=== PATIENT | female | born 1980 | race Caucasian/White ===

== ENCOUNTER 2018-07-05 16:57 | Emergency (ER) | payer OTHER ==
[2018-07-05 18:05] VITALS: BP 89/52
--- NOTE | 2018-07-05 19:05 | UC ---
Abdominal Pain Female HPI - HPI Summary HPI Summary: lower abdomen pain and vaginal itching with discharge---similar to past yeast infections - History of Current Complaint Chief Complaint: UCGU Stated Complaint: ABDOMINAL COMPLAINT Time Seen by Provider: 07/05/18 18:33 Hx Obtained From: Patient Hx Last Menstrual Period: 3 wks ?: No Onset/Duration: Sudden Onset, Lasting Days - 2, Still Present Timing: Constant Pain Intensity: 4 Pain Scale Used: 0-10 Numeric Location: Suprapubic Character: Aching Aggravating Factor(s): Nothing Alleviating Factor(s): Nothing Associated Signs and Symptoms: Positive: Negative Allergies/Adverse Reactions: Allergies Allergy/AdvReac Type Severity Reaction Status Date / Time lactose Allergy GI Upset Verified 07/05/18 18:06 Home Medications: Home Medications Omeprazole 40 mg PO 07/05/18 [History] PMH/Surg Hx/FS Hx/Imm Hx Previously Healthy: No GI/ History: Gastroesophageal Reflux - Surgical History Surgical History: Yes Surgery Procedure, Year, and Place: LEEP proceedure - Family History Known Family History: Positive: Cardiac Disease - SVT, Other - Hypercholesterolemia - Social History Occupation: Employed Full-time Lives: With Family Alcohol Use: Occasionally Substance Use Type: None Smoking Status (MU): Never Smoked Tobacco - Immunization History Most Recent Influenza Vaccination: doesn't get Review of Systems All Other Systems Reviewed And Are Negative: Yes Constitutional: Positive: Negative Skin: Positive: Negative Eyes: Positive: Negative ENT: Positive: Negative Respiratory: Positive: Negative Cardiovascular: Positive: Negative Gastrointestinal: Positive: Negative Genitourinary: Positive: Vaginal/Penile Itching Motor: Positive: Negative Neurovascular: Positive: Negative Musculoskeletal: Positive: Negative Neurological: Positive: Negative Psychological: Positive: Negative Is Patient Immunocompromised?: No Physical Exam Triage Information Reviewed: Yes Appearance: Well-Appearing, No Pain Distress, Well-Nourished Vital Signs: Initial Vital Signs Temp 99.8 F 07/05/18 18:01 Pulse 79 07/05/18 18:01 Resp 18 07/05/18 18:01 BP 89/52 07/05/18 18:01 Pulse Ox 100 07/05/18 18:01 Vital Signs Reviewed: Yes Eye Exam: Normal Eyes: Positive: Conjunctiva Clear ENT Exam: Normal ENT: Positive: Normal ENT inspection, Hearing grossly normal. Negative: Trismus , Muffled voice, Hoarse voice Dental Exam: Normal Neck exam: Normal Neck: Positive: Supple, Nontender Respiratory Exam: Normal Respiratory: Positive: Chest non-tender, No respiratory distress, No accessory muscle use Cardiovascular Exam: Normal Cardiovascular: Positive: RRR, Pulses Normal, Brisk Capillary Refill Abdominal Exam: Normal Abdomen Description: Positive: Nontender, No Organomegaly, Soft. Negative: CVA Tenderness (R), CVA Tenderness (L) Bowel Sounds: Positive: Present Pelvic Exam: Positive: External Exam Normal, No Cerv. Motion Tender, No Masses, Active Bleeding, Discharge - thick white Musculoskeletal Exam: Normal Musculoskeletal: Positive: Strength Intact, ROM Intact, No Edema Neurological Exam: Normal Neurological: Positive: Alert, Muscle Tone Normal Psychological Exam: Normal Skin Exam: Normal Abd Pain Female Course/Dx - Course Course Of Treatment: Diflucan times 1 now---affirm and apptima testing follow with pcp prn - Differential Dx/Diagnosis Provider Diagnoses: Vulvovaginal candidiasis Discharge - Sign-Out/Discharge Documenting (check all that apply): Patient Departure All imaging exams completed and their final reports reviewed: No Studies - Discharge Plan Condition: Stable Disposition: HOME Patient Education Materials: Fluconazole (By mouth), Yeast Infection (ED), Vaginitis (ED) Referrals: Ernie Ordoñez MD [Primary Care Provider] - If Needed - Billing Disposition and Condition Condition: STABLE Disposition: Home
[2018-07-05] MEDS ORDERED: Fluconazole 100 MG TAB* TAB PO ONE (19:21)
--- NOTE | 2018-07-07 08:18 | UC ---
- Progress Note Progress Note: Yeast and BV negative. Appears she was treated with diflucan x1. If not better should f/u with PCP Discharge - Sign-Out/Discharge Documenting (check all that apply): Post-Discharge Follow Up All imaging exams completed and their final reports reviewed: No Studies - Discharge Plan Condition: Stable Disposition: HOME Patient Education Materials: Fluconazole (By mouth), Yeast Infection (ED), Vaginitis (ED) Referrals: Ernie Ordoñez MD [Primary Care Provider] - If Needed - Billing Disposition and Condition Condition: STABLE Disposition: Home
== END 2018-07-05 19:40 | disposition home or self-care (01) ==
LOC: UCEAST 16:57
DX: B37.3 Candidiasis of vulva and vagina (principal)
CPT/HCPCS: 81003; 84702; 87480; 87491; 87510; 87591; 87661; 99212; A9270-GY; G0463